=== PATIENT | male | born 1940 | race Caucasian/White ===

== ENCOUNTER 2019-09-12 14:05 | Emergency (ER) | payer MEDICARE, BC ==
[2019-09-12] MEDS ORDERED: Ondansetron PF 4 MG/2 ML Vial ONE (14:55)
[2019-09-12 14:59] LABS: #Basophils 0.1 thou/uL (0.0-0.2); #Eosinphils 0.1 thou/uL (0.0-0.7); #Monocytes 0.5 thou/uL (0.11-0.59); #Neutrophils 4.4 thou/uL (1.40-6.50); %Basophils 0.9 % (0.0-1.0); %Eosinophils 1.5 % (0.0-10.0); %Lymphocytes 15.9 % (21.0-51.0); %Monocytes 8.3 % (0.0-10.0); %Neutrophils 73.5 % (42.0-75.0); Hemoglobin 13.4 g/dL (14.0-18.0); Mean Corpuscular HGB CONC 33.1 g/dL (32.0-36.0); Mean Corpuscular Hemoglobin 27.3 pg (27.0-31.0); Mean Corpuscular Volume 82.5 fL (78.0-98.0); Platelet Count 227 thou/uL (130-400); RBC Distribution Width 12.9 % (11.5-14.5); Red Blood Cell (RBC) Count 4.92 mill/uL (4.70-6.10)
[2019-09-12 15:15] LABS: Anion Gap 21 mmol/L (10-20); BUN (Urea Nitrogen) 81 mg/dL (8.4-25.7); Calc. Creatinine Clearance 0 mL/min (70-130); Calcium 7.7 mg/dL (7.8-10.44); Carbon Dioxide 22 mmol/L (23-31); Chloride 85 mmol/L (98-107); Estimated GFR-MDRD 7; Glucose 106 mg/dL (83-110); Potassium 5.5 mmol/L (3.5-5.1); Sodium 122 mmol/L (136-145)
== END 2019-09-12 15:32 | disposition short-term general hospital (02) ==
LOC: BURERS 14:05
DX: E87.1 Hypo-osmolality and hyponatremia (principal); N17.9 Acute kidney failure, unspecified; E78.5 Hyperlipidemia, unspecified; I10 Essential (primary) hypertension; Z87.891 Personal history of nicotine dependence
CPT/HCPCS: 85025; 93005; 96361; 96374; J2405

== ENCOUNTER 2019-09-24 14:26 | Emergency (ER) | payer MEDICARE, BC ==
--- NOTE | 2019-09-24 15:50 | CT ---
CT CHEST WITHOUT CONTRAST: Date: 09-24-2019 Comparison: PET CT 06-08-2019 done at [facility]. History: The patient presents today with right chest wall pain. FINDINGS: I do not see any obvious cause for the patient's chest wall pain. No grossly fractured ribs or areas of bony destruction were seen in any of the ribs. A PET scan would be more sensitive to such. The tho racic vertebra appeared intact. Degenerative change is seen in association within. There is pleural thickening in the left hemithorax and some pleural calcifications as has been descri bed previously. This appears very similar to before. Attention is drawn to scan 8 of the axial images . There appears to be a group of nodes that are about 4.6 cm long in total that are larger than was p resent on the May PET scan. The rest of the mediastinum was unremarkable, though it is difficult to assess a hilar adenopathy due to the lack of contrast. There is no pericardial effusion. Calcifica tion is seen in the aorta and the coronary arteries. There are no acute infiltrates seen in the lungs. No large pleural effusions were present. The scans into the upper abdomen showed no gross hepatic masses within the area scanned. The left adrenal gland seems slightly oliva than the right, though perhaps not much different than before. A small hiatal hernia was seen. IMPRESSION: 1. No findings to explain the patient's chest wall pain. Other modalities might be more sensitive, ho wever. 2. Apparent increase in size of nodes in the left paratracheal region at the level of the left lung a pex. These have grown since the May 2019 study. Further PET scanning could prove if these are hyp ermetabolic or not. Findings discussed with Dr. Tucker at 1512 on 09-24-2019. POS: HOME
== END 2019-09-24 15:27 | disposition home or self-care (01) ==
LOC: BURERS 14:26
DX: S29.012A Strain of muscle and tendon of back wall of thorax, initial encounter (principal); R59.9 Enlarged lymph nodes, unspecified; E78.5 Hyperlipidemia, unspecified; I10 Essential (primary) hypertension; Z87.891 Personal history of nicotine dependence; Z85.118 Personal history of other malignant neoplasm of bronchus and lung; X58.XXXA Exposure to other specified factors, initial encounter
CPT/HCPCS: 71250

== ENCOUNTER → 2019-10-09 | Emergency (ER) | payer MEDICARE, BC ==
[~2019-10-09] MED LIST: Aspirin Chewable 81 MG TAB ONE; Calcium Gluc 4.6 MEQ/10 ML (100 MG/ML) ONE; Enoxaparin Sodium 100 MG/ML SYRINGE ONE; Fentanyl 100 MCG/2 ML VIAL ONE; Metoprolol Tartrate 5 MG/5 ML VIAL ONE
[2019-10-09 15:02] LABS: #Basophils 0.1 thou/uL (0.0-0.2); #Eosinphils 0.1 thou/uL (0.0-0.7); #Lymphocytes 2.4 thou/uL (1.20-3.40); #Monocytes 0.1 thou/uL (0.11-0.59); #Neutrophils 12.3 thou/uL (1.40-6.50); %Basophils 0.4 % (0.0-1.0); %Eosinophils 0.7 % (0.0-10.0); %Lymphocytes 16.1 % (21.0-51.0); %Monocytes 0.6 % (0.0-10.0); %Neutrophils 82.2 % (42.0-75.0); Hemoglobin 12.1 g/dL (14.0-18.0); Mean Corpuscular HGB CONC 31.4 g/dL (32.0-36.0); Mean Corpuscular Hemoglobin 27.1 pg (27.0-31.0); Mean Corpuscular Volume 86.2 fL (78.0-98.0); Mean Platelet Volume 9.1 fL (7.4-10.4); Platelet Count 324 thou/uL (130-400); RBC Distribution Width 13.9 % (11.5-14.5); Red Blood Cell (RBC) Count 4.47 mill/uL (4.70-6.10)
[2019-10-09 15:09] LABS: INR-International Normal Ratio 1.2; Prothrombin Time 15.2 sec (12.0-14.7)
[2019-10-09 15:19] LABS: ALT (SGPT) 14 U/L (8-55); AST (SGOT) 18 U/L (5-34); Albumin 4.1 g/dL (3.4-4.8); Alkaline Phosphatase 63 U/L (40-110); Anion Gap 20 mmol/L (10-20); BUN (Urea Nitrogen) 37 mg/dL (8.4-25.7); Bilirubin, Total 1.2 mg/dL (0.2-1.2); CK (CPK) 192 U/L (30-200); Calc. Creatinine Clearance 0 mL/min (70-130); Calcium 6.9 mg/dL (7.8-10.44); Carbon Dioxide 22 mmol/L (23-31); Chloride 98 mmol/L (98-107); Estimated GFR-MDRD 37; Globulin 3.9 g/dL (2.4-3.5); Glucose 96 mg/dL (83-110); Potassium 3.7 mmol/L (3.5-5.1); Sodium 136 mmol/L (136-145)
--- NOTE | 2019-10-09 16:09 | RAD ---
PORTABLE CHEST: DATE: 10/09/2019. FINDINGS: An AP portable film at 1521 is compared with the 09/13/2019 study. There has been little change in the interval. Partial opacification in the lower left hemithorax is about the same as before. The right lung remains clear. The heart is normal in size. Calcification of the aortic arch is present as usual, as well as slight deviation of the trachea to the left at th e thoracic inlet. The MediPort catheter remains in place. IMPRESSION: No acute changes compared to 09/12. POS: HOME
--- NOTE | 2019-10-09 16:21 | CT ---
CT BRAIN: Date: 10-09-[address] was compared with a 07-25-2019 study. FINDINGS: Mild atrophy with mild compensatory dilatation of the ventricles is present, as before. There are a f ew patchy areas of hyperlucency in the deep white matter, particularly the left frontal lobe that sug gests chronic ischemic changes. There is no change in the interval. No new lesions were seen to allow the diagnosis of acute stroke. There is no sign of mass, edema, or bleeding. The skull appears malathi l. The visible paranasal sinuses and mastoid air cells are clear. IMPRESSION: No acute intracranial findings. Preliminary report called to Christa in the Emergency Department at 1527 on 10-09-2019. POS: HOME
== END ==
LOC: BURERS 14:32
DX: E83.51 Hypocalcemia (principal); I48.91 Unspecified atrial fibrillation; E78.5 Hyperlipidemia, unspecified; I10 Essential (primary) hypertension; Z87.891 Personal history of nicotine dependence; Z79.899 Other long term (current) drug therapy
CPT/HCPCS: 70450; 71045; 80053; 82550; 84484; 85025; 85610; 93005; 96361; 96372; 96374; 96375; J1650; J3010

== ENCOUNTER → 2019-10-25 | Emergency (ER) | payer MEDICARE, BC ==
[~2019-10-25] MED LIST changes: -Aspirin Chewable 81 MG TAB ONE; -Enoxaparin Sodium 100 MG/ML SYRINGE ONE; -Fentanyl 100 MCG/2 ML VIAL ONE; +Iopamidol 370 76% 100 ML VIAL ONE; +Magnesium 2 GM/50 ML BAG (IN WATER) ONE; -Metoprolol Tartrate 5 MG/5 ML VIAL ONE
[2019-10-25 16:55] LABS: #Basophils 0.1 thou/uL (0.0-0.2); #Lymphocytes 1.2 thou/uL (1.20-3.40); #Neutrophils 10.6 thou/uL (1.40-6.50); %Basophils 0.6 % (0.0-1.0); %Eosinophils 0.1 % (0.0-10.0); %Monocytes 7.5 % (0.0-10.0); %Neutrophils 82.8 % (42.0-75.0); Hemoglobin 9.4 g/dL (14.0-18.0); Mean Corpuscular HGB CONC 31.7 g/dL (32.0-36.0); Mean Corpuscular Hemoglobin 27.6 pg (27.0-31.0); Mean Corpuscular Volume 87.2 fL (78.0-98.0); Platelet Count 377 thou/uL (130-400); RBC Distribution Width 16.4 % (11.5-14.5); White Blood Cell (WBC) Count 12.8 thou/uL (4.8-10.8)
[2019-10-25 17:05] LABS: ALT (SGPT) 12 U/L (8-55); AST (SGOT) 13 U/L (5-34); Albumin 3.9 g/dL (3.4-4.8); Alkaline Phosphatase 68 U/L (40-110); Anion Gap 20 mmol/L (10-20); BUN (Urea Nitrogen) 17 mg/dL (8.4-25.7); Bilirubin, Total 0.4 mg/dL (0.2-1.2); Calc. Creatinine Clearance 0 mL/min (70-130); Calcium 6.1 mg/dL (7.8-10.44); Carbon Dioxide 21 mmol/L (23-31); Chloride 103 mmol/L (98-107); Estimated GFR-MDRD 50; Globulin 3.5 g/dL (2.4-3.5); Glucose 134 mg/dL (83-110); Lipase 36 U/L (8-78); Magnesium Less than 0.6 mg/dL (1.6-2.6); Potassium 3.6 mmol/L (3.5-5.1); Protein, Total 7.4 g/dL (5.8-8.1); Sodium 140 mmol/L (136-145)
[2019-10-25 17:35] LABS: Bilirubin Negative (Negative); Clarity Clear (Clear); Glucose, Urine (Dipstick) Negative (Negative); Leukocyte Negative (Negative); Nitrite Negative (Negative); Protein, Urine (Dipstick) 30 mg/dL (Neg-Trace); Urobilinogen 0.2 mg/dL (Less than 2)
[2019-10-25 17:36] LABS: Bacteria/HPF Rare-Few HPF (None Seen); Blood, Urine Trace (Negative); RBC/HPF 0-3 HPF (0-3); Squamous Epithelial 0-3 HPF (0-3); WBC/HPF 0-3 HPF (0-3)
[2019-10-25 17:37] LABS: INR-International Normal Ratio 1.3; PTT 36.1 sec (22.9-36.1); Prothrombin Time 15.8 sec (12.0-14.7)
--- NOTE | 2019-10-25 19:38 | RAD ---
PORTABLE CHEST: 10/25/19 An AP portable film at 1701 is compared with a 10/08 study. There is some streaking in the right lung base that was not present before. An early infiltrate here is possible. Some areas of increased opaci ty in the left lung seem chronic and no different than before. No large effusions are seen. The heart size is stable. The Mediport catheter remains in place as usual. IMPRESSION: Interval appearance of right basilar streaking. POS: HOME
--- NOTE | 2019-10-25 19:50 | CT ---
CT OF THE BRAIN WITHOUT CONTRAST: 10/25/19 Comparison is made with the 10/09/2019 study. There has been no significant interval change. Diffuse atrophy and chronic ischemic changes are prese nt as usual. There were no findings of acute stroke, mass or edema. The ventricular sizes are unchang ed. No bleeding was present. There is probably a little mucosal thickening in the floor of the right maxillary sinus. IMPRESSION: Chronic ischemic changes but no acute intracranial findings. Preliminary report called to Dr. Camargo at 1655 on 10/25/19. POS: HOME
--- NOTE | 2019-10-25 21:10 | CT ---
CT ANGIO OF THE CHEST: 10/25/19 Comparison is made with a 09/24/19 study. A bolus of IV contrast as given. There is moderate opacification of the pulmonary arteries, but the p atient is moving some which reduces the sensitivity of the study. There were no obvious filling defe cts in the large to medium sized pulmonary arteries to suggest emboli. Smaller emboli in peripheral b ranches would be missed on this exam. There is no sign of pericardial effusion. The area of increased nodes seen near the left lung apex on the prior exam is difficult to assess due to streak artifact from the patient's contrast. There is a small left pleural effusion and/or thickening. The degree is similar to the prior exam. There is a s ubacute fracture of the left fifth rib that in retrospect was present previously. One of the lower le ft ribs appears to have been resected. A hiatal hernia is present. There is no major lobar infiltrate seen today, though there is most certainly some basilar streaking that may be more atelectatic in na ture than not. IMPRESSION: 1. Moderate sensitivity study showing no major pulmonary embolus. 2. Small left pleural effusion, similar to the prior exam. 3. Some streaking in the lower lobes, to some extent this may actually be atelectasis. I cannot absolutely confirm and acute pneumonia. Preliminary report called to Dr. Camargo at 1801 on 10/25/2019. POS: HOME
== END ==
LOC: BURERS 16:21
DX: A41.9 Sepsis, unspecified organism (principal); E83.51 Hypocalcemia; E83.42 Hypomagnesemia; J18.9 Pneumonia, unspecified organism; E78.5 Hyperlipidemia, unspecified; I10 Essential (primary) hypertension; I48.91 Unspecified atrial fibrillation; Z87.891 Personal history of nicotine dependence; Z79.899 Other long term (current) drug therapy; Z79.01 Long term (current) use of anticoagulants
CPT/HCPCS: 51701; 70450; 71045; 71275; 80053; 81003; 81015; 83605; 83690; 83735; 84443; 84484; 85025; 85379; 85610; 85730; 87040; 93005; 96365; 96375; J1956; J3370; J3475; Q9967

== ENCOUNTER 2020-06-04 16:58 | Emergency (ER) | payer BC, MEDICARE ==
[2020-06-04 18:03] LABS: #Basophils 0.1 thou/uL (0.0-0.2); #Eosinphils 0.3 thou/uL (0.0-0.7); #Lymphocytes 1.5 thou/uL (1.20-3.40); #Monocytes 0.6 thou/uL (0.11-0.59); #Neutrophils 6.4 thou/uL (1.40-6.50); %Basophils 1.3 % (0.0-1.0); %Lymphocytes 16.5 % (21.0-51.0); %Monocytes 7.2 % (0.0-10.0); Mean Corpuscular HGB CONC 32.2 g/dL (32.0-36.0); Mean Corpuscular Hemoglobin 32.7 pg (27.0-31.0); Mean Platelet Volume 8.6 fL (7.4-10.4); Platelet Count 187 thou/uL (130-400); RBC Distribution Width 12.7 % (11.5-14.5); Red Blood Cell (RBC) Count 4.58 mill/uL (4.70-6.10); White Blood Cell (WBC) Count 8.8 thou/uL (4.8-10.8)
[2020-06-04 18:18] LABS: ALT (SGPT) 18 U/L (8-55); AST (SGOT) 22 U/L (5-34); Albumin 4.1 g/dL (3.4-4.8); Alkaline Phosphatase 54 U/L (40-110); Anion Gap 19 mmol/L (10-20); BUN (Urea Nitrogen) 24 mg/dL (8.4-25.7); Bilirubin, Total 0.3 mg/dL (0.2-1.2); Calc. Creatinine Clearance 0 mL/min (70-130); Calcium 9.1 mg/dL (7.8-10.44); Carbon Dioxide 21 mmol/L (23-31); Chloride 103 mmol/L (98-107); Globulin 2.7 g/dL (2.4-3.5); Glucose 102 mg/dL (83-110); Magnesium 1.7 mg/dL (1.6-2.6); Potassium 3.7 mmol/L (3.5-5.1); Protein, Total 6.8 g/dL (5.8-8.1); Sodium 139 mmol/L (136-145)
[2020-06-04] MEDS ORDERED: Lidocaine 2% PF 5 ML VIAL ONE (18:27)
== END 2020-06-04 18:40 | disposition home or self-care (01) ==
LOC: BURERS 16:58
DX: R53.1 Weakness (principal); Z79.899 Other long term (current) drug therapy; Z79.82 Long term (current) use of aspirin; E78.5 Hyperlipidemia, unspecified; I10 Essential (primary) hypertension; Z87.891 Personal history of nicotine dependence
CPT/HCPCS: 36415; 80053; 83735; 85025; 99284; J2001

== ENCOUNTER 2021-08-07 14:12 | Emergency (ER) | payer MEDICARE ==
[2021-08-07] MEDS ORDERED: Ondansetron PF 4 MG/2 ML Vial ONE (14:25)
[2021-08-07 14:29] LABS: #Basophils 0.2 thou/uL (0.0-0.2); #Lymphocytes 1.1 thou/uL (1.20-3.40); #Monocytes 0.8 thou/uL (0.11-0.59); #Neutrophils 5.2 thou/uL (1.40-6.50); %Basophils 2.4 % (0.0-1.0); %Eosinophils 0.4 % (0.0-10.0); %Lymphocytes 14.9 % (21.0-51.0); %Neutrophils 71.4 % (42.0-75.0); Hemoglobin 15.2 g/dL (14.0-18.0); Mean Corpuscular HGB CONC 33.2 g/dL (32.0-36.0); Mean Corpuscular Hemoglobin 30.8 pg (27.0-31.0); Mean Platelet Volume 7.1 fL (7.4-10.4); Platelet Count 253 thou/uL (130-400); RBC Distribution Width 13.2 % (11.5-14.5); Red Blood Cell (RBC) Count 4.93 mill/uL (4.70-6.10); White Blood Cell (WBC) Count 7.2 thou/uL (4.8-10.8)
[2021-08-07 14:36] LABS: INR-International Normal Ratio 1.1; Prothrombin Time 14.6 sec (12.0-14.7)
[2021-08-07 14:37] LABS: PTT 38.2 sec (22.9-36.1)
[2021-08-07 14:44] LABS: ALT (SGPT) 15 U/L (8-55); AST (SGOT) 15 U/L (5-34); Albumin 4.4 g/dL (3.4-4.8); Alkaline Phosphatase 56 U/L (40-110); Anion Gap 14 mmol/L (10-20); BUN (Urea Nitrogen) 20 mg/dL (8.4-25.7); Bilirubin, Total 0.5 mg/dL (0.2-1.2); Calc. Creatinine Clearance 0 mL/min (70-130); Calcium 8.8 mg/dL (7.8-10.44); Carbon Dioxide 26 mmol/L (23-31); Chloride 97 mmol/L (98-107); Globulin 3.4 g/dL (2.4-3.5); Glucose 107 mg/dL (83-110); Potassium 3.9 mmol/L (3.5-5.1); Protein, Total 7.8 g/dL (5.8-8.1); Sodium 133 mmol/L (136-145)
[2021-08-07] MEDS ORDERED: Potassium Chloride 20 MEQ TAB ONE (15:07)
[2021-08-07] MEDS ORDERED: Metoclopramide HCl 10 MG/2 ML VIAL ONE (15:07)
[2021-08-07] MEDS ORDERED: Aspirin Chewable 81 MG TAB ONE (15:07)
[2021-08-08 13:44] LABS: SARS-CoV-2 PCR by NAA Not Detected (NotDetected)
== END 2021-08-07 18:05 | disposition short-term general hospital (02) ==
LOC: BURERS 14:12
DX: G45.9 Transient cerebral ischemic attack, unspecified (principal); E78.5 Hyperlipidemia, unspecified; I10 Essential (primary) hypertension; Z86.73 Personal history of transient ischemic attack (TIA), and cerebral infarction without residual deficits; Z20.822 Contact with and (suspected) exposure to COVID-19
CPT/HCPCS: 36416; 70450; 80053; 84484; 85025; 85610; 85730; 93005; 96374; 96375; J2405; J2765; U0003; U0005